=== PATIENT | female | born 2000 | race Caucasian/White ===

== ENCOUNTER 2021-05-24 11:12 | Emergency (ER) | payer OTHER ==
[~2021-05-24] VITALS: Ht 162.6 cm; Wt 54.5 kg
[2021-05-24 11:30] VITALS: TEMP 98
[2021-05-24 11:36] LABS: COLLECTION METHOD CLEAN CATCH
[2021-05-24 11:42] LABS: MUCOUS Present /lpf; PH 6 (5-8); SQUAMOUS EPITHELIAL 0-2 /hpf; URINE APPEARANCE Clear; URINE BACTERIA None Seen /hpf; URINE BILIRUBIN Negative (NEGATIVE); URINE BLOOD Negative (NEGATIVE); URINE COLOR Yellow; URINE GLUCOSE Negative (NEGATIVE); URINE KETONE Negative (NEGATIVE); URINE LEUKOCYTE ESTERASE Negative (NEGATIVE); URINE NITRATE Negative (NEGATIVE); URINE PROTEIN(semi-quant) Negative (NEGATIVE); URINE RBC None Seen /hpf; URINE UROBILINOGEN Negative (NEGATIVE)
[2021-05-24 11:55] LABS: BASO % 0.5 % (0.0-2.0); EOS # 0.1 (0.0-0.7); EOS % 1.4 % (0-4.0); GRAN # 4.1 (1.4-6.5); GRAN % 64.3 % (42.2-75.2); HEMATOCRIT 39.2 % (35.0-45.0); HEMOGLOBIN 13.5 g/dl (12.0-15.0); LYMPH # 1.6 (1.2-3.4); LYMPH % 25.2 % (20.0-51.0); MEAN CELL VOLUME 86 fl (80.0-95.0); MEAN CORPUSCULAR HEMOGLOBIN 30 pg (26.0-32.0); MEAN CORPUSCULAR HGB CONC 34 g/dl (33.0-37.0); MEAN PLATELET VOLUME 9.9 fl (7.4-10.4); MONO # 0.5 (0.1-0.6); MONO % 8.3 % (1.7-9.3); PLATELET COUNT 261 K/mm3 (130-400); RED BLOOD COUNT 4.55 M/mm3 (4.10-5.30); REDCELL DISTRIBUTION WIDTH-CV 11.9 % (11.5-14.5)
[2021-05-24 13:15] LABS: ALANINE AMINOTRANSFERASE 15 U/L (0-55); ALBUMIN 3.7 gm/dL (3.5-5.0); ALKALINE PHOSPHATASE 47 U/L (0-750); ANION GAP 8 mmol/L (7-16); AST,SGOT 18 U/L (5-34); BLOOD UREA NITROGEN 12 mg/dL (7-19); CALCIUM 8.7 mg/dL (8.4-10.2); CARBON DIOXIDE 21 mmol/L (22-29); CHLORIDE 108 mmol/L (98-107); GLUCOSE 80 mg/dL (70-99); LIPASE < 10 U/L (8-78); POTASSIUM 3.8 mmol/L (3.5-4.5); SODIUM 137 mmol/L (136-145); TOTAL PROTEIN 6.9 gm/dL (6.2-8.1)
[2021-05-24 14:06] LABS: BILIRUBIN,TOTAL 0.4 mg/dL (0.2-1.2)
[2021-05-24 15:01] VITALS: BP 92/56; PULSE 52
== END 2021-05-24 15:03 | disposition home or self-care (01) ==
LOC: COL.ER 11:12
PROVIDERS: Emergency Medicine; Nurse Practitioner Primary Care
DX: R10.30 Lower abdominal pain, unspecified (principal); Z32.02 Encounter for pregnancy test, result negative
CPT/HCPCS: J1885; J2405; J7030